=== PATIENT | male | born 1975 | race Two or more races ===

== ENCOUNTER → 2019-02-03 | Outpatient (REF) | payer OTHER | LOC: M SFHCPLAZ 11:40 | PROVIDERS: ATTEND Physician Assistant Medical | DX: Z53.9 Procedure and treatment not carried out, unspecified reason (principal); R03.0 Elevated blood-pressure reading, without diagnosis of hypertension; E66.9 Obesity, unspecified; Z13.220 Encounter for screening for lipoid disorders ==

== ENCOUNTER → 2019-02-24 | Outpatient (REF) | payer OTHER ==
[2019-02-24 13:03] LABS: BASO % 0.4 % (0.0-1.0); EOS # 0.1 10^3/uL (0.0-0.50); EOS % 1.6 % (0.0-3.0); HEMATOCRIT 44.3 % (42.0-52.0); LYMPH # 1.7 10^3/uL (1.5-4.5); LYMPH % 31.4 % (24.0-44.0); MEAN CORPUSCULAR HEMOGLOBIN 28.9 pg (27.0-33.0); MEAN CORPUSCULAR HGB CONC 33.9 g/dl (32.0-36.5); MEAN CORPUSCULAR VOLUME 85.4 fl (80.0-96.0); MONO # 0.5 10^3/uL (0.0-0.8); MONO % 9.4 % (0.0-5.0); NEUTROPHILS # 3.1 10^3/uL (1.8-7.7); NEUTROPHILS % 56.1 % (36.0-66.0); PLATELET COUNT, AUTOMATED 213 10^3/uL (150-450); RED BLOOD COUNT 5.19 10^6/uL (4.30-6.10); WHITE BLOOD COUNT 5.6 10^3/uL (4.0-10.0)
[2019-02-24 13:21] LABS: ALBUMIN 3.9 GM/DL (3.2-5.2); ALT/SGPT 34 U/L (12-78); BILIRUBIN,TOTAL 0.5 MG/DL (0.2-1.0); BLOOD UREA NITROGEN 16 MG/DL (7-18); CARBON DIOXIDE LEVEL 28 MEQ/L (21-32); CHLORIDE LEVEL 107 MEQ/L (98-107); CHOLESTEROL LEVEL 193 MG/DL (<200); CHOLESTEROL RISK RATIO 6.655 (<5); CREATININE FOR GFR 0.86 MG/DL (0.70-1.30); FREE T4 1.06 NG/DL (0.76-1.46); GLOMERULAR FILTRATION RATE > 60.0 (>60); GLUCOSE, FASTING 235 MG/DL (70-100); HDL CHOLESTEROL 29 MG/DL (>40); LDL CHOLESTEROL 112 MG/DL (<100); NON-HDL-C 164 MG/DL; POTASSIUM SERUM 4.2 MEQ/L (3.5-5.1); SODIUM LEVEL 139 MEQ/L (136-145); TOTAL PROTEIN 6.9 GM/DL (6.4-8.2); TRIGLYCERIDES LEVEL 259 MG/DL (<150)
[2019-02-24 17:02] LABS: HEMOGLOBIN A1c 10.6 %
== END ==
LOC: M SFHCPLAZ 08:49
PROVIDERS: ATTEND Physician Assistant Medical
DX: R03.0 Elevated blood-pressure reading, without diagnosis of hypertension (principal); E66.9 Obesity, unspecified; Z13.220 Encounter for screening for lipoid disorders

== ENCOUNTER → 2019-03-19 | Outpatient (REF) | payer OTHER ==
[2019-03-19 17:55] LABS: MAU/CREAT RATIO 702.5 MCG/MG (0.0-30.0)
[2019-03-19 18:16] LABS: HEMOGLOBIN A1c 8.9 %
== END ==
LOC: M SFHCPLAZ 14:24
PROVIDERS: ATTEND Physician Assistant Medical
DX: E11.9 Type 2 diabetes mellitus without complications (principal)

== ENCOUNTER → 2019-12-20 | Outpatient (CLI) | payer OTHER ==
[2019-12-20 13:45] LABS: BASO # 0.1 10^3/uL (0.0-0.2); BASO % 0.9 % (0.0-1.0); EOS # 0.2 10^3/uL (0.0-0.5); EOS % 2.8 % (0.0-3.0); HEMATOCRIT 43.6 % (42.0-52.0); HEMOGLOBIN 14.8 g/dl (13.5-17.5); LYMPH # 2.1 10^3/uL (1.5-5.0); LYMPH % 33.4 % (24.0-44.0); MEAN CORPUSCULAR HEMOGLOBIN 29.3 pg (27.0-33.0); MEAN CORPUSCULAR HGB CONC 33.9 g/dl (32.0-36.5); MEAN CORPUSCULAR VOLUME 86.3 fl (80.0-96.0); MONO # 0.6 10^3/uL (0.0-0.8); NEUTROPHILS # 3.3 10^3/uL (1.5-8.5); NEUTROPHILS % 52.3 % (36.0-66.0); PLATELET COUNT, AUTOMATED 223 10^3/uL (150-450); RED BLOOD COUNT 5.05 10^6/uL (4.30-6.10); WHITE BLOOD COUNT 6.3 10^3/uL (4.0-10.0)
[2019-12-20 13:51] LABS: ALBUMIN 3.8 GM/DL (3.2-5.2); ALT/SGPT 34 U/L (12-78); BILIRUBIN,TOTAL 0.5 MG/DL (0.2-1.0); BLOOD UREA NITROGEN 34 MG/DL (7-18); CALCIUM LEVEL 9.1 MG/DL (8.5-10.1); CARBON DIOXIDE LEVEL 25 MEQ/L (21-32); CHLORIDE LEVEL 112 MEQ/L (98-107); CHOLESTEROL LEVEL 113 MG/DL (<200); CHOLESTEROL RISK RATIO 3.896 (<5); CREATININE FOR GFR 0.97 MG/DL (0.70-1.30); GLOMERULAR FILTRATION RATE > 60.0 (>60); GLUCOSE, FASTING 136 MG/DL (70-100); HDL CHOLESTEROL 29 MG/DL (>40); LDL CHOLESTEROL 55 MG/DL (<100); NON-HDL-C 84 MG/DL; POTASSIUM SERUM 4.5 MEQ/L (3.5-5.1); SODIUM LEVEL 142 MEQ/L (136-145); TOTAL PROTEIN 6.7 GM/DL (6.4-8.2); TRIGLYCERIDES LEVEL 143 MG/DL (<150)
[2019-12-20 15:14] LABS: HEMOGLOBIN A1c 6.8 %
== END ==
LOC: M WUC 08:55
PROVIDERS: ATTEND Physician Assistant Medical
DX: E78.2 Mixed hyperlipidemia (principal); E11.9 Type 2 diabetes mellitus without complications; I10 Essential (primary) hypertension

== ENCOUNTER → 2020-05-12 | Outpatient (REF) | payer OTHER | LOC: M LAB 11:00 | PROVIDERS: ATTEND Urology | DX: Z30.2 Encounter for sterilization (principal) ==

== ENCOUNTER → 2020-07-26 | Outpatient (REF) | payer OTHER ==
[2020-07-26 12:55] LABS: SEMEN APPEARANCE OPAQUE (OPAQUE); SEMEN VISCOSITY LIQUID (LIQUID); SEMEN VOLUME 2.7 ml (2.0-5.0)
[2020-07-26 12:56] LABS: WBC CONCENTRATION <=1 M/ml (<=1 M/ml)
== END ==
LOC: M LAB REF 12:26
PROVIDERS: ATTEND Urology
DX: Z98.52 Vasectomy status (principal)

== ENCOUNTER → 2020-08-24 | Outpatient (REF) | payer OTHER ==
[2020-08-24 13:05] LABS: SEMEN APPEARANCE OPAQUE (OPAQUE)
[2020-08-24 13:06] LABS: SEMEN VISCOSITY LIQUID (LIQUID); SEMEN VOLUME 2.1 ml (2.0-5.0); WBC CONCENTRATION <=1 M/ml (<=1 M/ml)
== END ==
LOC: M SMT 12:29
PROVIDERS: ATTEND Urology
DX: Z98.52 Vasectomy status (principal)

== ENCOUNTER 2021-07-26 20:33 | Observation (INO) | payer OTHER ==
[~2021-07-26] VITALS: Ht 170.2 cm; Wt 93.2 kg
[2021-07-26] MEDS ORDERED: LISI-898 PO (20:52)
[2021-07-26] MEDS ORDERED: ATOR1TAB21 PO (20:52)
[2021-07-26] MEDS ORDERED: METF-839 PO (20:52)
[2021-07-26] MEDS ORDERED: NORV5TAB PO (20:52)
[2021-07-26 22:43] LABS: BASO # 0.1 10^3/uL (0.0-0.2); BASO % 0.5 % (0.0-1.0); EOS # 0.1 10^3/uL (0.0-0.5); EOS % 0.9 % (0.0-3.0); HEMATOCRIT 45.5 % (42.0-52.0); HEMOGLOBIN 15.4 g/dl (13.5-17.5); LYMPH # 1.1 10^3/uL (1.5-5.0); LYMPH % 8.7 % (24.0-44.0); MEAN CORPUSCULAR HEMOGLOBIN 28.3 pg (27.0-33.0); MEAN CORPUSCULAR HGB CONC 33.8 g/dl (32.0-36.5); MEAN CORPUSCULAR VOLUME 83.5 fl (80.0-96.0); MONO # 0.8 10^3/uL (0.0-0.8); NEUTROPHILS # 10.5 10^3/uL (1.5-8.5); NEUTROPHILS % 82.3 % (36.0-66.0); PLATELET COUNT, AUTOMATED 228 10^3/uL (150-450); RED BLOOD COUNT 5.45 10^6/uL (4.30-6.10); WHITE BLOOD COUNT 12.8 10^3/uL (4.0-10.0)
[2021-07-26 23:18] LABS: ALBUMIN 3.9 GM/DL (3.2-5.2); ALT/SGPT 33 U/L (12-78); BILIRUBIN,DIRECT < 0.1 MG/DL (0.0-0.2); BILIRUBIN,TOTAL 0.5 MG/DL (0.2-1.0); BLOOD UREA NITROGEN 42 MG/DL (7-18); CALCIUM LEVEL 9.3 MG/DL (8.5-10.1); CARBON DIOXIDE LEVEL 26 MEQ/L (21-32); CHLORIDE LEVEL 104 MEQ/L (98-107); CREATININE FOR GFR 2.14 MG/DL (0.70-1.30); GLOMERULAR FILTRATION RATE 35.8 (>60); GLUCOSE, FASTING 178 MG/DL (70-100); LIPASE 529 U/L (73-393); POTASSIUM SERUM 4.2 MEQ/L (3.5-5.1); SODIUM LEVEL 138 MEQ/L (136-145); TOTAL PROTEIN 7.5 GM/DL (6.4-8.2)
[2021-07-27] VITALS (9 sets, daily range): BP systolic 92–206; BP diastolic 60–135
[2021-07-27] MEDS ORDERED: NS 1,000 ML IV ONE (00:10)
[2021-07-27] MEDS ORDERED: MORPHINE 4 MG/ML 1ML VIAL/SYRINGE (J2270) IV ONE (00:40)
[2021-07-27 01:47] LABS: RSV AMPLIFICATION NEGATIVE (NEGATIVE)
--- NOTE | 2021-07-27 02:04 | REPVR ---
PROCEDURE INFORMATION: Exam: CT Abdomen And Pelvis Without Contrast Exam date and time: 07/27/2021 12:14 AM Age: 46 years old Clinical indication: Abdominal pain; Flank; Left; Additional info: Llq pain TECHNIQUE: Imaging protocol: Computed tomography of the abdomen and pelvis without contrast. Radiation optimization: All CT scans at this facility use at least one of these dose optimization techniques: automated exposure control; mA and/or kV adjustment per patient size (includes targeted exams where dose is matched to clinical indication); or iterative reconstruction. COMPARISON: No relevant prior studies available. FINDINGS: Mediastinal space: Small hiatal hernia with gastroesophageal junction thickening. Liver: Normal. No mass. Gallbladder and bile ducts: Normal. No calcified stones. No ductal dilation. Pancreas: Normal. No ductal dilation. Spleen: Normal. No splenomegaly. Adrenal glands: Normal. No mass. Kidneys and ureters: Left ureteral pelvic obstructing 12 mm calculus. Moderate left renal hydronephrosis with renal swelling and perinephric stranding. Additional small nonobstructing left inferior renal pole calculi. Stomach and bowel: Unremarkable. No obstruction. No mucosal thickening. Appendix: No evidence of appendicitis. Intraperitoneal space: Unremarkable. No free air. No significant fluid collection. Vasculature: Unremarkable. No abdominal aortic aneurysm. Lymph nodes: Unremarkable. No enlarged lymph nodes. Urinary bladder: Unremarkable as visualized. Reproductive: Unremarkable as visualized. Bones/joints: Moderate lumbar spondylosis. Small to moderate disc bulge and protrusions. Soft tissues: Unremarkable. IMPRESSION: 1. Small hiatal hernia with gastroesophageal junction thickening. 2. Left ureteral pelvic obstructing 12 mm calculus. Moderate left renal hydronephrosis with renal swelling and perinephric stranding. Electronically signed by: Alvin Samuel On 07/27/2021 02:04:14 AM
[2021-07-27] MEDS ORDERED: NS 1,000 ML IV SCH (02:45)
[2021-07-27] MEDS ORDERED: GLUCOSE 4GM CHEW TABLET PO PRN ×2 (02:45→19:15)
[2021-07-27] MEDS ORDERED: MORPHINE 2 MG/ML 1ML VIAL (J2270) IV PRN (02:45)
[2021-07-27] MEDS ORDERED: GLUCAGON INJ 1MG VIAL SC PRN ×2 (02:45→19:15)
[2021-07-27] MEDS ORDERED: DEXTROSE 50% 50 ML SYRINGE IV PRN ×2 (02:45→19:15)
[2021-07-27] MEDS ORDERED: ONDANSETRON 4MG/2ML VIAL IV PRN ×2 (02:50→16:30)
[2021-07-27] MEDS: HumaLOG INSULIN (NovoLOG) PER UNIT SC SCH ×5 (03:20→20:41)
[2021-07-27] MEDS ORDERED: NS 500 ML IV ONE (03:30)
[2021-07-27] MEDS ORDERED: HOME MED LIST COMPLETE! XX SCH (03:45)
[2021-07-27] MEDS ORDERED: METF-838 PO (03:45)
[2021-07-27] MEDS ORDERED: MULTCHW12 PO (03:45)
[2021-07-27] MEDS ORDERED: AMLO1TAB24 PO (03:45)
[2021-07-27] MEDS ORDERED: LISI10TA22 PO (03:45)
[2021-07-27] MEDS ORDERED: ATOR1TAB21 PO (03:45)
[2021-07-27] MEDS ORDERED: IBUP-1730 PO (03:45)
--- NOTE | 2021-07-27 03:47 | HPEPDOC ---
General Date of Admission 07/27/21 Date of Service: Jul 27, 2021 Chief Complaint Abd Pain. 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 Patient reports that he is also had associated nausea vomiting episode due to the pain. Patient reports the lower left abdomen radiating to left flank cramping type pain moderate this AM. Patient reports it was relieved somewhat with Advil but felt he should come into the ER. Patient underwent CT abdomen pelvis that showed + small hiatal hernia and Left ureteral pelvic obstructing 12 mm calculus. Moderate left renal hydronephrosis with renal swelling and perinephric stranding. Dr. Bain with urology was consulted in ED who recommended admission for IV fluid and pain control with plan for OR in a.m. Home Medications Scheduled Amlodipine Besylate (Amlodipine Besylate) 5 Mg Tablet, 5 MG PO BID Atorvastatin Calcium (Atorvastatin Calcium) 20 Mg Tablet, 20 MG PO QHS, (Reported) Folic Acid/Multivit-Min/Lutein (Multi-Vitamin Gummies) 1 Each Tab.chew, 2 CHW PO DAILY, (Reported) Metformin HCl (Metformin HCl ER) 500 Mg Tab.er.24h, 500 MG PO QHS, (Reported) Metoprolol Tartrate (Metoprolol Tartrate) 25 Mg Tablet, 50 MG PO BID Allergies Coded Allergies: Penicillins (Verified Allergy, Intermediate, hives, 07/26/21) Past Medical History Medical History Hypertension, hyperlipidemia, diabetes, obesity Surgical History Vasectomy Family History Significant Family History: Diabetes Mother and fatherdiabetes Social History * Smoker: Denies Alcohol: rarely Drugs: denies Recent Travel/Sick Contacts: Denies: Recent travel, Recent sick contacts Psychosocial History: No pertinent psych hx A-FIB/CHADSVASC A-FIB History Current/History of A-Fib/PAF?: No Current PO Anticoag Therapy: No Review of Systems Constitutional: Denies: Chills, Fever, Night Sweats Eyes: Denies: Pain, Vision change ENT: Denies: Head Aches, Ear Pain, Dysphagia Skin: Denies: Rash, Lesions, Breakdown Pulmonary: Denies: Dyspnea, Cough Cardiovascular: Denies: Chest Pain, Palpitations, Orthopnea, Paroxysmal Noc. Dyspnea, Lt Headedness Gastrointestinal: Reports: Nausea, Vomiting, Abdominal Pain (Left-sided); Denies: Diarrhea Genitourinary: Reports: Hematuria; Denies: Dysuria, Frequency, Incontinence, Retention Hematologic: Denies: Bruising, Bleeding Excessively Musculoskeletal: Denies: Neck Pain, Back Pain, Joint Pain, Muscle Pain, Spasms Neurological: Denies: Weakness, Numbness, Change in speech, Confusion Psych: Reports: Mood Normal; Denies: Depression, Memory Issues Physical Examination General Exam: Positive: Alert, Cooperative, No Acute Distress Eye Exam: Positive: PERRLA, Conjunctiva & lids normal, EOMI; Negative: Sclera icteric ENT Exam: Positive: Atraumatic, Mucous membr. moist/pink, Pharynx Normal Neck Exam: Positive: Supple; Negative: JVD, thyromegaly Chest Exam: Positive: Clear to auscultation, Normal air movement Heart Exam: Positive: Rate Normal, Regular Rhythm, Normal S1, Normal S2; Negative: Murmurs, Rubs Telemetry: Positive: No significant arrhythmia Abdomen Exam: Positive: Normal bowel sounds, Soft; Negative: Tenderness, Hepatospenomegaly Extremity Exam: Positive: Normal pulses; Negative: Clubbing, Cyanosis, Edema Skin Exam: Positive: Nl turgor and temperature; Negative: Breakdown, Lesion Neuro Exam: Positive: Normal Gait, Normal Speech, Cranial Nerves 3-12 NL, Reflexes 2+ Psych Exam: Positive: Mental status NL, Mood NL, Oriented x 3 Other physical findings + Left flank tenderness Vital Signs Vital Signs Date Time Temp Pulse Resp B/P (MAP) Pulse Ox O2 Delivery O2 Flow Rate FiO2 07/27/21 02:12 07/27/21 02:11 98.4 76 16 96 07/26/21 20:35 Room Air Laboratory Data Labs 24H Laboratory Tests 2 07/26/21 22:21: Immature Granulocyte % (Auto) 1.6, Neutrophils (%) (Auto) 82.3H, Lymphocytes (%) (Auto) 8.7L, Monocytes (%) (Auto) 6.0, Eosinophils (%) (Auto) 0.9, Basophils (%) (Auto) 0.5, Neutrophils # (Auto) 10.5H, Lymphocytes # (Auto) 1.1L, Monocytes # (Auto) 0.8, Eosinophils # (Auto) 0.1, Basophils # (Auto) 0.1, Nucleated Red Blood Cells % (auto) 0.0, Anion Gap 8, Glomerular Filtration Rate 35.8L, Lactic Acid Level 0.8, Calcium Level 9.3, Total Bilirubin 0.5, Direct Bilirubin < 0.1, Aspartate Amino Transf (AST/SGOT) 22, Alanine Aminotransferase (ALT/SGPT) 33, Alkaline Phosphatase 66, Total Protein 7.5, Albumin 3.9, Albumin/Globulin Ratio 1.1, Lipase 529H 07/27/21 00:56: Coronavirus (COVID-19)(PCR) NEGATIVE, Influenza Type A (RT-PCR) NEGATIVE, Influenza Type B (RT-PCR) NEGATIVE, Respiratory Syncytial Virus (PCR) NEGATIVE 07/27/21 01:38: Urine Color YELLOW, Urine Appearance CLEAR, Urine pH 5.0, Urine Specific [place] 1.015, Urine Protein 3+H, Urine Glucose (UA) 2+H, Urine Ketones TRACEH, Urine Blood 3+H, Urine Nitrite NEGATIVE, Urine Bilirubin NEGATIVE, Urine Urobilinogen 0.2, Urine Leukocyte Esterase NEGATIVE, Urine WBC (Auto) 1, Urine RBC (Auto) 47H, Urine Hyaline Casts (Auto) 1, Urine Bacteria (Auto) NEGATIVE, Urine Squamous Epithelial Cells 0, Urine Sperm (Auto) CBC/BMP Laboratory Tests 07/26/21 22:21 RAD Interpretation STUDY: ct a/p Rad Actions: Report Reviewed RAD Interpretation: Other Result Comments: Assessment/Plan 1. Left hydronephrosis secondary to renal calculus: -Monitor patient urine output -symptom management/supportive care: K pad, Toradol, morphine -IV fluid hydration -A.m. lab -N.p.o. for intervention in a.m. -Preop empiric coverage -Appreciate urology consult for further intervention/recommendation 2. SERENA: In setting of above. Creatinine 2.14 BUN 42-Monitor fluid balance, I's and O's, urinary output -Hydrate with consideration -Avoid nephrotoxins as able -A.m. labs -Consider nephrology consult pending patient response 3. Elevated lipase: 529. Denies history of pancreatitis. Denies EtOH. -Anticipate with hydration and treatment above will trend down. A.m. lab check. 4. HTN: Monitor BP in setting of above. Continue home medications once reconciled. 5. Diabetes: -Check A1c. -Monitor patient blood glucose every 6 hours. -Sliding scale insulin. -Hypoglycemia protocol. -Place patient on D5 normal saline at 60 since NPO. -A.m. labs. 6. Hyperlipidemia: Continue home medicine 7. Obesity: Complicates care DVT prophylaxis: SCDs CODE STATUS: Full Disposition planning: Home once creatinine normalizes and pending urological recommendations; anticipate less than 2 midnight stay Plan / VTE VTE Prophylaxis Ordered?: Yes WANDER PERALES NP Jul 27, 2021 02:44 MELISSA BURR MD Jul 29, 2021 20:06
[2021-07-27] MEDS: ATORVASTATIN 20 MG TAB PO SCH ×2 (04:29→20:41)
[2021-07-27] MEDS: amLODIPine 5 MG TAB PO SCH ×2 (04:29→20:41)
[2021-07-27] MEDS ORDERED: D5W/0.9% SODIUM CHLORIDE 1,000 ML IV SCH (04:30)
[2021-07-27] MEDS: KETOROLAC 30 MG/ML 1ML VIAL IV PRN ×2 (04:30→11:25)
[2021-07-27] MEDS ORDERED: METOPROLOL TART 12.5 MG PER 1/2 TAB PO PRN (05:35)
[2021-07-27 07:13] LABS: BASO % 0.3 % (0.0-1.0); EOS # 0.1 10^3/uL (0.0-0.5); EOS % 0.7 % (0.0-3.0); HEMATOCRIT 40.9 % (42.0-52.0); HEMOGLOBIN 14.1 g/dl (13.5-17.5); LYMPH % 9.8 % (24.0-44.0); MEAN CORPUSCULAR HEMOGLOBIN 28.5 pg (27.0-33.0); MEAN CORPUSCULAR HGB CONC 34.5 g/dl (32.0-36.5); MEAN CORPUSCULAR VOLUME 82.6 fl (80.0-96.0); MONO # 0.8 10^3/uL (0.0-0.8); MONO % 7.8 % (2.0-8.0); NEUTROPHILS # 7.7 10^3/uL (1.5-8.5); PLATELET COUNT, AUTOMATED 185 10^3/uL (150-450); RED BLOOD COUNT 4.95 10^6/uL (4.30-6.10); WHITE BLOOD COUNT 9.7 10^3/uL (4.0-10.0)
[2021-07-27 07:43] LABS: CALCIUM LEVEL 8.6 MG/DL (8.5-10.1); CREATININE FOR GFR 2.16 MG/DL (0.70-1.30); GLOMERULAR FILTRATION RATE 35.4 (>60); POTASSIUM SERUM 4.2 MEQ/L (3.5-5.1)
[2021-07-27] MEDS ORDERED: cefTRIAXone SOD 1 GM in D5W MINI-BAG PLUS 50 ML IV SCH (08:00)
--- NOTE | 2021-07-27 08:55 | SMCUROLCON ---
Urology Consultation General Date of Consultation 07/27/21 Reason For Consultation This patient is seen for Pravin, Renal Calcusl Left. History of Present Illness This is a 46 y/o M w/ a PMH significant for HL, HTN, and DM2, admitted for PRAVIN and abdominal pain secondary to a 1.2cm obstructing left kidney stone. He notes that the pain started yesterday and gradually got worse. He had one episode of emesis yesterday evening. CT A/P done in the ER was notable for a 1.2cm stone at the left UPJ causing moderate hydronephrosis. He denies dysuria or hematuria. He denies fevers or chills. He has never had kidney stones previously. Past Medical History Medical History see HPI Surgical Hstory Vasectomy Medications Current Medications Current Medications Medications (Trade) Dose Ordered Sig/Chanel Route PRN Reason Start Time Stop Time Status Last Admin Dose Admin Acetaminophen (Tylenol Tab) 650 mg Q4H PRN PO MILD PAIN or TEMP > 101 07/27/21 02:45 Amlodipine Besylate (Norvasc) 5 mg QHS PO 07/26/21 21:00 07/27/21 04:29 Atorvastatin Calcium (Lipitor) 20 mg QHS PO 07/26/21 21:00 07/27/21 04:29 Ceftriaxone Sodium 1 gm/ Dextrose 50 ml @ 100 mls/hr ASDIRECTED IV 07/27/21 08:00 Dextrose (Dextrose 50%) 25 ml ASDIRECTED PRN IV SEE LABEL COMMENTS 07/27/21 02:45 Dextrose/Sodium Chloride 1,000 ml @ 60 mls/hr [id number] IV 07/27/21 04:30 07/27/21 04:30 Glucagon (Glucagon) 1 mg ASDIRECTED PRN SC SEE LABEL COMMENTS 07/27/21 02:45 Glucose (Glucose) 16 GM ASDIRECTED PRN PO SEE LABEL COMMENTS 07/27/21 02:45 Home Med (Home Med List Complete!) ASDIRECTED XX 07/27/21 03:45 07/27/21 03:47 DC Insulin Human Lispro (HumaLOG INSULIN) See Protocol Table Q6H SC 07/27/21 00:00 07/27/21 06:25 Ketorolac Tromethamine (ToRADol) 15 mg Q6H PRN IV MODERATE PAIN 07/27/21 02:45 07/27/21 04:30 Metoprolol Tartrate (Lopressor) 12.5 mg Q8HP PRN PO sbp>170 or DBP>100 07/27/21 05:35 Morphine Sulfate (Morphine Sulfate Inj) 2 mg Q4HP PRN IV SEVERE PAIN 07/27/21 02:45 Multivitamins (Theragram-M) 1 tab DAILY PO 07/27/21 09:00 Ondansetron HCl (ZOFRAN INJection) 4 mg Q6HP PRN IV NAUSEA OR VOMITING 07/27/21 02:50 Sodium Chloride 1,000 ml @ 125 mls/hr Q8H IV 07/27/21 02:45 07/27/21 03:32 DC 07/27/21 03:20 Allergies Allergies: Coded Allergies: Penicillins (Verified Allergy, Intermediate, hives, 07/26/21) Review of Systems Constitutional: Denies: Fever, Chills, Sweats, Weakness, Malaise Skin: Denies: Rash, Lesions, Breakdown, Nail Changes Pulmonary: Denies: Dyspnea, Cough Cardiovascular: Denies Chest Pain, Denies Palpitations Gastrointestinal: Reports: Nausea, Vomiting, Abdominal Pain (LLQ) Genitourinary: Denies: Dysuria, Frequency, Incontinence, Hematuria Musculoskeletal: Denies: Neck Pain, Back Pain Neurological: Denies: Weakness, Numbness, Incoordination, Change in Speech Psych: Reports: Mood Normal Physical Examination General Exam: Alert, Cooperative, No Acute Distress Chest Exam: Normal air movement Heart Exam: Rate Normal Abdomen Exam: Soft, Tenderness (mild LLQ) Skin Exam: Nl turgor and temperature Neuro Exam: Normal Speech Psych Exam: Mental status NL, Mood NL Vital Signs/I&O Vital Signs Date Time Temp Pulse Resp B/P (MAP) Pulse Ox O2 Delivery O2 Flow Rate FiO2 07/27/21 06:00 98.4 107 20 174/110 (131) 91 Room Air I&O- Last 24 Hours up to 6 AM 07/27/21 06:00 Intake Total 1000 ml Balance 1000 ml Laboratory Data 24H Labs Laboratory Tests 2 07/26/21 22:21: Immature Granulocyte % (Auto) 1.6, Neutrophils (%) (Auto) 82.3H, Lymphocytes (%) (Auto) 8.7L, Monocytes (%) (Auto) 6.0, Eosinophils (%) (Auto) 0.9, Basophils (%) (Auto) 0.5, Neutrophils # (Auto) 10.5H, Lymphocytes # (Auto) 1.1L, Monocytes # (Auto) 0.8, Eosinophils # (Auto) 0.1, Basophils # (Auto) 0.1, Nucleated Red Blood Cells % (auto) 0.0, Anion Gap 8, Glomerular Filtration Rate 35.8L, Lactic Acid Level 0.8, Calcium Level 9.3, Total Bilirubin 0.5, Direct Bilirubin < 0.1, Aspartate Amino Transf (AST/SGOT) 22, Alanine Aminotransferase (ALT/SGPT) 33, Alkaline Phosphatase 66, Total Protein 7.5, Albumin 3.9, Albumin/Globulin Ratio 1.1, Lipase 529H 07/27/21 00:56: Coronavirus (COVID-19)(PCR) NEGATIVE, Influenza Type A (RT-PCR) NEGATIVE, Influenza Type B (RT-PCR) NEGATIVE, Respiratory Syncytial Virus (PCR) NEGATIVE 07/27/21 01:38: Urine Color YELLOW, Urine Appearance CLEAR, Urine pH 5.0, Urine Specific [place] 1.015, Urine Protein 3+H, Urine Glucose (UA) 2+H, Urine Ketones TRACEH, Urine Blood 3+H, Urine Nitrite NEGATIVE, Urine Bilirubin NEGATIVE, Urine Urobilinogen 0.2, Urine Leukocyte Esterase NEGATIVE, Urine WBC (Auto) 1, Urine RBC (Auto) 47H, Urine Hyaline Casts (Auto) 1, Urine Bacteria (Auto) NEGATIVE, Urine Squamous Epithelial Cells 0, Urine Sperm (Auto) 07/27/21 03:25: Bedside Glucose (Misc Panel) 199H 07/27/21 06:06: Bedside Glucose (Misc Panel) 196H 07/27/21 07:01: Immature Granulocyte % (Auto) 1.4, Neutrophils (%) (Auto) 80.0H, Lymphocytes (%) (Auto) 9.8L, Monocytes (%) (Auto) 7.8, Eosinophils (%) (Auto) 0.7, Basophils (%) (Auto) 0.3, Neutrophils # (Auto) 7.7, Lymphocytes # (Auto) 1.0L, Monocytes # (Auto) 0.8, Eosinophils # (Auto) 0.1, Basophils # (Auto) 0.0, Nucleated Red Blood Cells % (auto) 0.0, Anion Gap 9, Glomerular Filtration Rate 35.4L, Calcium Level 8.6, Lipase 204 CBC/BMP Laboratory Tests 07/26/21 22:21 07/27/21 07:01 Assessment This is a 46 y/o M admitted for PRAVIN and LLQ abdominal pain 2/2 a 1.2cm obstructing left UPJ stone. I recommended that we take him to the OR today for cystoscopy, left ureteroscopy w/ laser lithotripsy, and left ureteral stent placement for treatment. After a discussion of the risks and benefits of surgery, informed consent was signed. Plan - consent signed for surgery - rocephin ordered - pain management - NPO until surgery - resume regular diet postop - should be ok for discharge tomorrow assuming his Cr improves after surgery TIFFANY ACHARYA MD Jul 27, 2021 08:55
[2021-07-27] MEDS: MULTIVITAMINS/MINERALS THERAP 1 TAB PO SCH (09:00)
[2021-07-27] MEDS ORDERED: fentaNYL 100 MCG/2 ML INJECTION (J3010) As Ordered ONE ×2 (13:28→15:23)
[2021-07-27] MEDS ORDERED: MIDAZOLAM INJ 2MG/2ML VIAL (J2250 PER 1MG) As Ordered ONE (13:28)
[2021-07-27] MEDS ORDERED: dexameTHASONE 4 MG/ML 1ML VIAL (J1100 PER 1MG) As Ordered ONE (13:29)
[2021-07-27] MEDS ORDERED: LIDOCAINE 2% 100MG/5ML SDV (FOR ANES.) As Ordered ONE (13:29)
[2021-07-27] MEDS ORDERED: propofoL 200 MG/20 ML VIAL As Ordered ONE (13:29)
[2021-07-27] MEDS ORDERED: CONRAY-60 60% 50ML VIAL (Q9961) As Ordered ONE (14:15)
[2021-07-27] MEDS ORDERED: cefTRIAXone SOD 1GM VIAL (J0696 PER 250MG) As Ordered ONE (14:40)
[2021-07-27] MEDS ORDERED: LevoFLOXacin 500MG/100ML IV BAG (J1956 PER 250MG) As Ordered ONE (14:44)
[2021-07-27] MEDS ORDERED: ACETAMINOPHEN 1000MG 100ML IV BTL (OFIRMEV) (J0131 PER 10MG) As Ordered ONE (14:54)
[2021-07-27] MEDS ORDERED: ONDANSETRON 4MG/2ML VIAL As Ordered ONE (14:58)
[2021-07-27] MEDS ORDERED: fentaNYL 100 MCG/2 ML INJECTION (J3010) IV PRN (16:30)
[2021-07-27] MEDS ORDERED: LR 1,000 ML IV SCH (16:30)
[2021-07-27] MEDS ORDERED: PERCOCET 5MG/325MG TAB PO PRN (16:30)
--- NOTE | 2021-07-27 18:49 | RO ---
OPERATIVE NOTE DATE OF OPERATION: 07/26/2021 PREOPERATIVE DIAGNOSIS: Left kidney stone. POSTOPERATIVE DIAGNOSIS: Left kidney stones. PROCEDURE: Cystoscopy, left ureteroscopy with laser lithotripsy and basket extraction of stones, left retrograde pyelogram with intraoperative interpretation of images, left ureteral stent placement. SURGEON: Dr. Yeyo Bain SPORTS PHOTOGRAPHER: None. ANESTHESIA: General. OPERATIVE INDICATIONS: This is a 46-year-old male who was found to have what appeared to be an approximately 1.3 cm obstructing left ureteropelvic junction stone. He was brought to the operating room today for treatment. DESCRIPTION OF PROCEDURE: The patient was brought to the operating room and general anesthesia induced. Prophylactic antibiotics were infused. He was placed in dorsal lithotomy position and prepped and draped in the usual sterile fashion. The cystoscope was inserted into the urethral meatus and advanced into the bladder. A guidewire was then advanced up the left collecting system. I then advanced a ureteral access sheath up the left collecting system. I went through the access sheath with a flexible ureteroscope, and at the level of the proximal ureter there were two kidney stones seen. Each were approximately 4-5 mm in size. These stones were fragmented into smaller pieces using a 272 micron laser fiber, and then the fragments were removed using a basket. Just proximal to this was a larger, approximately 1 cm size, stone. There was some narrowing in the proximal right ureter. Therefore, the decision was made not to try to fragment the stone into larger pieces, as it would have been difficult to keep going back and forth with the scope to basket all the fragments. I therefore dusted the stone into the very tiny stone fragments. All the fragments were dusted with the laser small enough to where they should be able to pass. Once done, I examined the right kidney thoroughly and no additional large stone fragments were seen. A retrograde pyelogram was performed and was notable for some mild right hydronephrosis. No extravasation. I then withdrew the ureteroscope as well as the access sheath, and no additional stones were seen inside the ureter. I then utilized the guidewire to advance a 6-Iranian x 22-32 cm JJ ureteral stent up the left collecting system. The wire was removed, and there were adequate coils of the stent in the left renal pelvis and in the bladder. The bladder was emptied of all fluid, and this marked the conclusion of the procedure. The patient was taken out of the dorsal lithotomy position, awakened from anesthesia, and transported to the recovery room in stable condition. ESTIMATED BLOOD LOSS: 5 mL. COMPLICATIONS: None. SPECIMENS: Kidney stone fragments. PLAN: The patient will keep his stent in for approximately 3-4 weeks. We will have him followup in urology clinic for stent removal at that time. NAEEM
--- NOTE | 2021-07-27 19:07 | REP ---
INDICATION: LEFT STENT PLACEMENT. COMPARISON: None. TECHNIQUE: Intraoperative fluoroscopic imaging using last image hold. FINDINGS: Multiple images demonstrate satisfactory left ureteral stent placement. IMPRESSION: Satisfactory left ureteral stent placement. <Electronically signed by Herman Rangel > 07/27/21 [id number]
[2021-07-28 02:00] VITALS: BP 160/96
[2021-07-28] MEDS: ACETAMINOPHEN TAB 650MG DOSE (2X325MG) PO PRN ×3 (02:33→22:03)
[2021-07-28 06:18] VITALS: BP 160/95
[2021-07-28] MEDS: **hydrALAZINE** 10 MG TAB PO SCH ×2 (08:45→15:22)
[2021-07-28] MEDS: MULTIVITAMINS/MINERALS THERAP 1 TAB PO SCH (08:46)
[2021-07-28] MEDS: amLODIPine 5 MG TAB PO SCH ×2 (08:46→21:58)
[2021-07-28] MEDS: HumaLOG INSULIN (NovoLOG) PER UNIT SC SCH ×4 (08:46→21:00)
[2021-07-28 09:14] LABS: BASO % 0.4 % (0.0-1.0); EOS # 0.1 10^3/uL (0.0-0.5); EOS % 1.1 % (0.0-3.0); HEMATOCRIT 41.4 % (42.0-52.0); HEMOGLOBIN 14.1 g/dl (13.5-17.5); LYMPH # 1.4 10^3/uL (1.5-5.0); LYMPH % 15.6 % (24.0-44.0); MEAN CORPUSCULAR HEMOGLOBIN 28.6 pg (27.0-33.0); MEAN CORPUSCULAR HGB CONC 34.1 g/dl (32.0-36.5); MONO # 0.8 10^3/uL (0.0-0.8); MONO % 8.5 % (2.0-8.0); NEUTROPHILS # 6.6 10^3/uL (1.5-8.5); NEUTROPHILS % 73.3 % (36.0-66.0); PLATELET COUNT, AUTOMATED 204 10^3/uL (150-450); RED BLOOD COUNT 4.93 10^6/uL (4.30-6.10)
[2021-07-28 09:38] LABS: CALCIUM LEVEL 8.3 MG/DL (8.5-10.1); GLOMERULAR FILTRATION RATE 38.7 (>60)
[2021-07-28 10:00] VITALS: BP 170/98
[2021-07-28] MEDS ORDERED: NS 1,000 ML IV ONE (13:35)
[2021-07-28 14:00] VITALS: BP 168/96
--- NOTE | 2021-07-28 16:30 | IPNPDOC ---
Subjective Date Seen The patient was seen on 07/28/21. Subjective Chief Complaint/HPI Patient went to OR on 07/27/2021. Now does not complain of any abdominal pain but does feel some discomfort when he is urinating. He is having hematuria as expected. His renal functions did not improve as I had expected. We will give him some extra hydration today. Objective Physical Examination General Exam: Positive: Alert, Cooperative, No Acute Distress Eye Exam: Positive: PERRLA, Conjunctiva & lids normal, EOMI; Negative: Sclera icteric ENT Exam: Positive: Atraumatic, Mucous membr. moist/pink, Pharynx Normal Neck Exam: Positive: Supple; Negative: JVD, thyromegaly Chest Exam: Positive: Clear to auscultation, Normal air movement Heart Exam: Positive: Rate Normal, Regular Rhythm, Normal S1, Normal S2; Negative: Murmurs, Rubs Telemetry: Positive: No significant arrhythmia Abdomen Exam: Positive: Normal bowel sounds, Soft; Negative: Tenderness, Hepatospenomegaly Extremity Exam: Negative: Clubbing, Cyanosis, Edema Skin Exam: Positive: Nl turgor and temperature; Negative: Breakdown, Lesion Neuro Exam: Positive: Normal Speech, Strength at 5/5 X4 ext, Normal Tone Psych Exam: Positive: Oriented x 3 Assessment /Plan Assessment This is 46-year-old male with significant history of hypertension, hyper lipidemia, diabetes and obesity presented to the ED with complaints of left- sided lower abdominal pain for 1 day associated with nausea and vomiting 1 episode patient reports that he is also had associated nausea vomiting episode due to the pain. CT abdomen pelvis that showed + small hiatal hernia and Left ureteropelvic junction obstructing 12 mm calculus. Moderate left renal hydronephrosis with renal swelling and perinephric stranding. He was also noted to have SERENA. Patient was admitted for left ureteric stone with obstructive uropathy and SERENA. Left kidney stones and left ureteric stone with left hydronephrosis Status post cystoscopy, left ureteroscopy with laser lithotripsy and basket extraction of stones, left retrograde pyelogram, left ureteral stent placement. SERENA Due to obstructive Lisinopril* Hypertension Amlodipine dose increased, started on hydralazine and metoprolol Lisinopril stopped due to SERENA Diabetes Lispro as per sliding scale Hyperlipidemia Continue statin Plan/VTE VTE Prophylaxis Ordered?: Yes VS, I&O, 24H, Brian Vital Signs/I&O Vital Signs Date Time Temp Pulse Resp B/P (MAP) Pulse Ox O2 Delivery O2 Flow Rate FiO2 07/28/21 15:22 172/104 07/28/21 14:00 98.4 96 20 94 Room Air 07/27/21 18:05 2.0 I&O- Last 24 Hours up to 6 AM 07/28/21 06:00 Intake Total 1500 ml Balance 1500 ml Laboratory Data 24H LABS Laboratory Tests 2 07/27/21 18:42: Bedside Glucose (Misc Panel) 197H 07/27/21 20:38: Bedside Glucose (Misc Panel) 309H 07/28/21 08:06: Bedside Glucose (Misc Panel) 139H 07/28/21 08:58: Anion Gap 6L, Glomerular Filtration Rate 38.7L, Calcium Level 8.3L 07/28/21 08:59: Immature Granulocyte % (Auto) 1.1, Neutrophils (%) (Auto) 73.3H, Lymphocytes (%) (Auto) 15.6L, Monocytes (%) (Auto) 8.5H, Eosinophils (%) (Auto) 1.1, Basophils (%) (Auto) 0.4, Neutrophils # (Auto) 6.6, Lymphocytes # (Auto) 1.4L, Monocytes # (Auto) 0.8, Eosinophils # (Auto) 0.1, Basophils # (Auto) 0.0, Nucleated Red Blood Cells % (auto) 0.0 07/28/21 11:33: Bedside Glucose (Misc Panel) 178H CBC/BMP Laboratory Tests 07/28/21 08:58 07/28/21 08:59 Amalia Reese MD Jul 28, 2021 16:30
[2021-07-28 18:00] VITALS: BP 160/90
[2021-07-28] MEDS: METOPROLOL TART 25 MG TABLET PO SCH (18:02)
[2021-07-28 21:28] VITALS: BP 163/82
[2021-07-28] MEDS: ATORVASTATIN 20 MG TAB PO SCH (21:58)
[2021-07-29 00:37] VITALS: BP 166/102
[2021-07-29] MEDS: METOPROLOL TART 25 MG TABLET PO SCH ×2 (00:39→05:53)
[2021-07-29] MEDS: **hydrALAZINE HCL** 25 MG TAB PO SCH ×3 (00:40→12:00)
[2021-07-29 06:00] VITALS: BP 164/83
[2021-07-29] MEDS: HumaLOG INSULIN (NovoLOG) PER UNIT SC SCH ×2 (08:48→12:15)
[2021-07-29] MEDS: MULTIVITAMINS/MINERALS THERAP 1 TAB PO SCH (08:48)
[2021-07-29] MEDS: amLODIPine 5 MG TAB PO SCH (08:49)
[2021-07-29 09:08] LABS: BASO # 0.1 10^3/uL (0.0-0.2); BASO % 0.6 % (0.0-1.0); EOS # 0.2 10^3/uL (0.0-0.5); HEMATOCRIT 40.8 % (42.0-52.0); HEMOGLOBIN 13.7 g/dl (13.5-17.5); LYMPH % 25.1 % (24.0-44.0); MEAN CORPUSCULAR HEMOGLOBIN 28.4 pg (27.0-33.0); MEAN CORPUSCULAR HGB CONC 33.6 g/dl (32.0-36.5); MEAN CORPUSCULAR VOLUME 84.6 fl (80.0-96.0); MONO # 0.8 10^3/uL (0.0-0.8); MONO % 9.7 % (2.0-8.0); NEUTROPHILS # 4.7 10^3/uL (1.5-8.5); NEUTROPHILS % 59.8 % (36.0-66.0); PLATELET COUNT, AUTOMATED 214 10^3/uL (150-450); RED BLOOD COUNT 4.82 10^6/uL (4.30-6.10); WHITE BLOOD COUNT 7.9 10^3/uL (4.0-10.0)
[2021-07-29 09:24] LABS: CALCIUM LEVEL 8.4 MG/DL (8.5-10.1); CREATININE FOR GFR 1.57 MG/DL (0.70-1.30); GLOMERULAR FILTRATION RATE 51.1 (>60); POTASSIUM SERUM 3.9 MEQ/L (3.5-5.1)
[2021-07-29] MEDS ORDERED: amLODIPine 5 MG TAB PO ONE (09:45)
[2021-07-29] MEDS ORDERED: METO1TAB87 PO (11:51)
[2021-07-29] MEDS ORDERED: AMLO1TAB24 PO (11:51)
[2021-07-29 12:15] VITALS: BP 156/99
[2021-07-29] MEDS ORDERED: METOPROLOL TART 25 MG TABLET PO SCH (21:00)
--- NOTE | 2021-07-29 21:26 | DS.PDOC ---
Discharge Summary General Date of Admission Jul 27, 2021 at 03:21 Date of Discharge 07/29/21 Discharge Summary PROCEDURES PERFORMED DURING STAY: Status post cystoscopy, left ureteroscopy with laser lithotripsy and basket extraction of stones, left retrograde pyelogram, left ureteral stent placement. DISCHARGE DIAGNOSES: Left ureteropelvic junction stone with left hydronephrosis PRAVIN SECONDARY DIAGNOSIS: DM, HTn, hyperlipidemia, obesity COMPLICATIONS/CHIEF COMPLAINT: Pravin, Renal Calculus Left. HOSPITAL COURSE: This is 46-year-old male with significant history of hypertension, hyperlipidemia, diabetes and obesity presented to the ED with complaints of left-sided lower abdominal pain for 1 day associated with nausea and vomiting 1 episode patient reports that he is also had associated nausea vomiting episode due to the pain. CT abdomen pelvis that showed + small hiatal hernia with thickening of gastroesophageal junction left renal stones and Left ureteropelvic junction obstructing 12 mm calculus. Moderate left renal hydronephrosis with renal swelling and perinephric stranding. He was also noted to have PRAVIN. Patient was admitted for left ureteric stone with obstructive uropathy and PRAVIN. Left kidney stone and left ureteric stone with left hydronephrosis UA clean , no elevation of WBC, no fever no signs of infections. Status post cystoscopy, left ureteroscopy with laser lithotripsy and basket extraction of stones, left retrograde pyelogram, left ureteral stent placement. Follow up with Dr bain in 2 to 3 weeks for removal of the stent. Pain control with tylenol. PRAVIN Due to obstructive uropathy Lisinopril stopped Hypertension Amlodipine dose increased, started on metoprolol Lisinopril stopped due to PRAVIN Diabetes restart metformin Hyperlipidemia Continue statin Small hiatal hernia with mild thickening of gastroesophageal junction no symptoms of reflux. Follow up with PMD. May need an EGD if develops alarming symptoms. DISCHARGE MEDICATIONS: Please see below. ALLERGIES: Please see below. PHYSICAL EXAMINATION ON DISCHARGE: VITAL SIGNS: Please see below. General Exam: Positive: Alert, Cooperative, No Acute Distress Eye Exam: Positive: PERRLA, Conjunctiva & lids normal, EOMI; Negative: Sclera icteric ENT Exam: Positive: Atraumatic, Mucous membr. moist/pink, Pharynx Normal Neck Exam: Positive: Supple; Negative: JVD, thyromegaly Chest Exam: Positive: Clear to auscultation, Normal air movement Heart Exam: Positive: Rate Normal, Regular Rhythm, Normal S1, Normal S2; Negative: Murmurs, Rubs Telemetry: Positive: No significant arrhythmia Abdomen Exam: Positive: Normal bowel sounds, Soft; Negative: Tenderness, Hepatosplenomegaly Extremity Exam: Negative: Clubbing, Cyanosis, Edema Skin Exam: Positive: Nl turgor and temperature; Negative: Breakdown, Lesion Neuro Exam: Positive: Normal Speech, Strength at 5/5 X4 ext, Normal Tone Psych Exam: Positive: Oriented x 3 LABORATORY DATA: Please see below. ACTIVITY: [As tolerated]. DIET: carb consistent DISPOSITION: 01 Home, Self-Care. DISCHARGE INSTRUCTIONS: PMD in [address] Bain in 2 to 3 weeks DISCHARGE CONDITION: [Stable]. TIME SPENT ON DISCHARGE: 35 minutes. Vital Signs/I&Os Vital Signs Date Time Temp Pulse Resp B/P (MAP) Pulse Ox O2 Delivery O2 Flow Rate FiO2 07/29/21 12:15 77 156/99 07/29/21 06:00 98.6 18 96 Room Air 07/27/21 18:05 2.0 I&O- Last 24 Hours up to 6 AM 07/29/21 07:00 Intake Total 2800 ml Output Total 1100 ml Balance 1700 ml Laboratory Data Labs 24H Laboratory Tests 2 07/29/21 07:48: Bedside Glucose (Misc Panel) 151H 07/29/21 08:40: Immature Granulocyte % (Auto) 1.8, Neutrophils (%) (Auto) 59.8, Lymphocytes (%) (Auto) 25.1, Monocytes (%) (Auto) 9.7H, Eosinophils (%) (Auto) 3.0, Basophils (%) (Auto) 0.6, Neutrophils # (Auto) 4.7, Lymphocytes # (Auto) 2.0, Monocytes # (Auto) 0.8, Eosinophils # (Auto) 0.2, Basophils # (Auto) 0.1, Nucleated Red Blood Cells % (auto) 0.0, Anion Gap 4L, Glomerular Filtration Rate 51.1L, Calcium Level 8.4L 07/29/21 11:49: Bedside Glucose (Misc Panel) 256H CBC/BMP Laboratory Tests 07/29/21 08:40 FSBS Laboratory Tests Test 07/29/21 07:48 07/29/21 11:49 Range/Units Bedside Glucose (Misc Panel) 151 256 70-105 MG/DL Discharge Medications Scheduled Amlodipine Besylate (Amlodipine Besylate) 5 Mg Tablet, 5 MG PO BID Atorvastatin Calcium (Atorvastatin Calcium) 20 Mg Tablet, 20 MG PO QHS, (Report ed) Folic Acid/Multivit-Min/Lutein (Multi-Vitamin Gummies) 1 Each Tab.chew, 2 CHW PO DAILY, (Reported) Metformin HCl (Metformin HCl ER) 500 Mg Tab.er.24h, 500 MG PO QHS, (Reported) Metoprolol Tartrate (Metoprolol Tartrate) 25 Mg Tablet, 50 MG PO BID Allergies Coded Allergies: Penicillins (Verified Allergy, Intermediate, hives, 07/26/21) Amalia Reese MD Jul 29, 2021 21:26
== END 2021-07-29 12:25 | disposition home or self-care (01) ==
LOC: M ED 20:33 → M ED INP 20:34 → UNDOADMIN 07-27 03:21 → M ED INP 07-27 03:21 → M MS5PR 07-27 03:55 → UNDODISIN 07-29 12:25
PROVIDERS: ADMIT Internal Medicine; ATTEND Internal Medicine
DX: N17.9 Acute kidney failure, unspecified (principal); N13.2 Hydronephrosis with renal and ureteral calculous obstruction; I10 Essential (primary) hypertension; E78.5 Hyperlipidemia, unspecified; E11.9 Type 2 diabetes mellitus without complications; Z88.0 Allergy status to penicillin; Z79.84 Long term (current) use of oral hypoglycemic drugs; Z79.899 Other long term (current) drug therapy; E66.9 Obesity, unspecified
CPT/HCPCS: 36415; 52356; 74176; 74420; 80048; 80076; 81001; 82365; 83605; 83690; 85025; 87631; 88300; 96361; 96374; 96375; 96376; 99284; C1769; C1894; C2617; J0131; J1100; J1885; J1956; J2250; J2270; J2405; J3010; Q9961

== ENCOUNTER → 2022-01-18 | Outpatient (CLI) | payer OTHER ==
[~2022-01-18] MED LIST: AMLO1TAB24 PO; ATOR1TAB21 PO; IBUP-1730 PO; LISI10TA22 PO; LISI5TAB11 PO; METF-838 PO; METF-839 PO; METO1TAB87 PO; MULTCHW12 PO; NORV5TAB PO
[2022-01-18 15:29] LABS: BASO # 0.1 10^3/uL (0.0-0.2); BASO % 0.8 % (0.0-1.0); EOS # 0.1 10^3/uL (0.0-0.5); EOS % 1.7 % (0.0-3.0); HEMATOCRIT 43.9 % (42.0-52.0); HEMOGLOBIN 14.9 g/dl (13.5-17.5); LYMPH # 1.3 10^3/uL (1.5-5.0); LYMPH % 22.1 % (24.0-44.0); MEAN CORPUSCULAR HEMOGLOBIN 28.5 pg (27.0-33.0); MEAN CORPUSCULAR HGB CONC 33.9 g/dl (32.0-36.5); MEAN CORPUSCULAR VOLUME 83.9 fl (80.0-96.0); MONO # 0.5 10^3/uL (0.0-0.8); MONO % 8.5 % (2.0-8.0); NEUTROPHILS # 3.9 10^3/uL (1.5-8.5); NEUTROPHILS % 65.4 % (36.0-66.0); PLATELET COUNT, AUTOMATED 237 10^3/uL (150-450); RED BLOOD COUNT 5.23 10^6/uL (4.30-6.10)
[2022-01-18 15:33] LABS: BILIRUBIN,TOTAL 0.4 MG/DL (0.2-1.0); CALCIUM LEVEL 9.1 MG/DL (8.5-10.1); CREATININE FOR GFR 1.68 MG/DL (0.70-1.30); GLOMERULAR FILTRATION RATE 47.3 (>60); POTASSIUM SERUM 4.7 MEQ/L (3.5-5.1); TOTAL PROTEIN 7.2 GM/DL (6.4-8.2)
[2022-01-18 15:50] LABS: HEMOGLOBIN A1c 7.7 %
[2022-01-18 16:23] LABS: CREATININE, URINE 92.7 MG/DL; MAU/CREAT RATIO 3225.4 MCG/MG (0.0-30.0)
== END ==
LOC: M PLALAB 11:55
PROVIDERS: ATTEND Physician Assistant Medical
DX: E78.2 Mixed hyperlipidemia (principal); E11.9 Type 2 diabetes mellitus without complications; I10 Essential (primary) hypertension

== ENCOUNTER → 2022-05-21 | Outpatient (CLI) | payer OTHER ==
[2022-05-21 17:52] LABS: ALBUMIN 3.6 GM/DL (3.2-5.2); ALT/SGPT 27 U/L (12-78); BILIRUBIN,TOTAL 0.2 MG/DL (0.2-1.0); BLOOD UREA NITROGEN 54 MG/DL (7-18); CALCIUM LEVEL 9.9 MG/DL (8.5-10.1); CARBON DIOXIDE LEVEL 26 MEQ/L (21-32); CHLORIDE LEVEL 110 MEQ/L (98-107); CHOLESTEROL LEVEL 207 MG/DL (<200); CHOLESTEROL RISK RATIO 7.666 (<5); CREATININE FOR GFR 1.88 MG/DL (0.70-1.30); GLOMERULAR FILTRATION RATE 41.5 (>60); GLUCOSE, FASTING 175 MG/DL (70-100); HDL CHOLESTEROL 27 MG/DL (>40); NON-HDL-C 180 MG/DL; POTASSIUM SERUM 4.9 MEQ/L (3.5-5.1); SODIUM LEVEL 138 MEQ/L (136-145); TOTAL PROTEIN 7.5 GM/DL (6.4-8.2); TRIGLYCERIDES LEVEL 489 MG/DL (<150)
[2022-05-21 18:26] LABS: HEMOGLOBIN A1c 7.4 %
[2022-05-21 18:33] LABS: CREATININE, URINE 87.7 MG/DL; MAU/CREAT RATIO 2519.9 MCG/MG (0.0-30.0)
== END ==
LOC: M WUC 11:09
PROVIDERS: ATTEND Physician Assistant Medical
DX: E78.2 Mixed hyperlipidemia (principal); E11.9 Type 2 diabetes mellitus without complications

== ENCOUNTER → 2022-05-29 | Outpatient (CLI) | payer OTHER ==
[2022-05-29 17:12] LABS: CREATININE FOR GFR 1.97 MG/DL (0.70-1.30); GLOMERULAR FILTRATION RATE 39.3 (>60); POTASSIUM SERUM 4.5 MEQ/L (3.5-5.1)
== END ==
LOC: M WUC 13:50
PROVIDERS: ATTEND Physician Assistant Medical
DX: N18.31 Chronic kidney disease, stage 3a (principal)

== ENCOUNTER → 2022-06-05 | Outpatient (CLI) | payer OTHER | LOC: M RAD 11:20 | PROVIDERS: ATTEND Physician Assistant Medical | DX: N20.0 Calculus of kidney (principal) ==

== ENCOUNTER → 2022-06-06 | Outpatient (REF) | payer OTHER ==
[2022-06-06 17:27] LABS: BASO % 0.5 % (0.0-1.0); EOS # 0.1 10^3/uL (0.0-0.5); EOS % 2.3 % (0.0-3.0); HEMATOCRIT 38.8 % (42.0-52.0); HEMOGLOBIN 12.8 g/dl (13.5-17.5); LYMPH # 1.6 10^3/uL (1.5-5.0); LYMPH % 25.7 % (24.0-44.0); MEAN CORPUSCULAR HEMOGLOBIN 28.3 pg (27.0-33.0); MEAN CORPUSCULAR VOLUME 85.7 fl (80.0-96.0); MONO # 0.6 10^3/uL (0.0-0.8); MONO % 9.1 % (2.0-8.0); NEUTROPHILS # 3.7 10^3/uL (1.5-8.5); NEUTROPHILS % 61.1 % (36.0-66.0); PLATELET COUNT, AUTOMATED 214 10^3/uL (150-450); RED BLOOD COUNT 4.53 10^6/uL (4.30-6.10); WHITE BLOOD COUNT 6.1 10^3/uL (4.0-10.0)
== END ==
LOC: M WUC 16:11
PROVIDERS: ATTEND Physician Assistant Medical
DX: N17.9 Acute kidney failure, unspecified (principal)

== ENCOUNTER → 2022-06-20 | Outpatient (CLI) | payer OTHER | LOC: M RAD 06:37 | PROVIDERS: ATTEND Physician Assistant Medical | DX: N18.31 Chronic kidney disease, stage 3a (principal) ==

== ENCOUNTER → 2022-10-17 | Outpatient (CLI) | payer OTHER ==
[2022-10-17 16:31] LABS: BASO % 0.6 % (0.0-1.0); EOS # 0.2 10^3/uL (0.0-0.5); EOS % 2.6 % (0.0-3.0); HEMATOCRIT 41.8 % (42.0-52.0); HEMOGLOBIN 13.5 g/dl (13.5-17.5); LYMPH # 1.6 10^3/uL (1.5-5.0); LYMPH % 22.9 % (24.0-44.0); MEAN CORPUSCULAR HEMOGLOBIN 28.1 pg (27.0-33.0); MEAN CORPUSCULAR HGB CONC 32.3 g/dl (32.0-36.5); MEAN CORPUSCULAR VOLUME 86.9 fl (80.0-96.0); MONO # 0.7 10^3/uL (0.0-0.8); MONO % 9.9 % (2.0-8.0); NEUTROPHILS # 4.3 10^3/uL (1.5-8.5); NEUTROPHILS % 62.4 % (36.0-66.0); PLATELET COUNT, AUTOMATED 210 10^3/uL (150-450); RED BLOOD COUNT 4.81 10^6/uL (4.30-6.10); WHITE BLOOD COUNT 6.9 10^3/uL (4.0-10.0)
[2022-10-17 16:52] LABS: CREATININE, URINE 87.1 MG/DL
[2022-10-17 16:53] LABS: ALBUMIN 3.5 G/DL (3.2-5.2); BILIRUBIN,TOTAL 0.3 MG/DL (0.3-1.2); CALCIUM LEVEL 8.6 MG/DL (8.5-10.1); CREATININE FOR GFR 1.9 MG/DL (0.70-1.30); GLOMERULAR FILTRATION RATE 40.8 (>60); HEMOGLOBIN A1c 7.4 % (4.0-6.0); POTASSIUM SERUM 4.5 MMOL/L (3.5-5.1); TOTAL PROTEIN 6.7 G/DL (5.7-8.2)
== END ==
LOC: M WUC 12:13
PROVIDERS: ATTEND Physician Assistant Medical
DX: I10 Essential (primary) hypertension (principal); E11.9 Type 2 diabetes mellitus without complications; M17.9 Osteoarthritis of knee, unspecified

== ENCOUNTER → 2022-12-11 | Outpatient (CLI) | payer OTHER ==
[2022-12-11 13:02] LABS: CALCIUM LEVEL 9.6 MG/DL (8.5-10.1); CREATININE FOR GFR 2.15 MG/DL (0.70-1.30); GLOMERULAR FILTRATION RATE 35.4 (>60); POTASSIUM SERUM 4.6 MMOL/L (3.5-5.1)
== END ==
LOC: M WUC 10:39
PROVIDERS: ATTEND Physician Assistant Medical
DX: I10 Essential (primary) hypertension (principal)

== ENCOUNTER → 2023-01-17 | Outpatient (CLI) | payer OTHER | LOC: M RAD 13:03 | PROVIDERS: ATTEND Physician Assistant Medical | DX: N04.9 Nephrotic syndrome with unspecified morphologic changes (principal) | CPT/HCPCS: 78707; A9562 ==

== ENCOUNTER → 2023-10-28 | Outpatient (REF) | payer OTHER | LOC: M SFHCPLAZ 13:23 | PROVIDERS: ATTEND Physician Assistant Medical | DX: J06.9 Acute upper respiratory infection, unspecified (principal) ==

== ENCOUNTER 2024-07-05 06:12 | Day surgery (SDC) | payer OTHER ==
[~2024-07-05] VITALS: Ht 170.2 cm; Wt 91.2 kg
[~2024-07-05 06:12] MED LIST changes: +ALLO100T PO; +ALOG25TA PO; +ATROPINE SULFATE 1% OPHTH SOLN 2ML BTL OS SCH; +CARV25TA PO; +FLURBIPROFEN 0.03% OPHTH SOLN 2.5 ML OS SCH; +HYDR25TA87 PO; +LOSA50TA28 PO; +LR 1,000 ML IV SCH; +PHENYLEPHRINE 2.5% OPHTH SOL 2ML OS SCH; +STEG5TAB PO; +TETRACAINE 0.5% OPHTH SOLN 4ML OS SCH
[2024-07-05] MEDS ORDERED: MIDAZOLAM INJ 2MG/2ML VIAL As Ordered ONE (06:38)
[2024-07-05] MEDS: TETRACAINE 0.5% OPHTH SOLN 4ML OS SCH (06:55)
[2024-07-05] MEDS: PHENYLEPHRINE 2.5% OPHTH SOL 2ML OS SCH (06:55)
[2024-07-05] MEDS: FLURBIPROFEN 0.03% OPHTH SOLN 2.5 ML OS SCH (06:55)
[2024-07-05] MEDS: ATROPINE SULFATE 1% OPHTH SOLN 2ML BTL OS SCH (06:55)
[2024-07-05] MEDS ORDERED: LR 1,000 ML IV SCH (07:00)
[2024-07-05] MEDS: LIDOCAINE 1% SDV 5ML VIAL As Ordered ONE (07:34)
[2024-07-05] MEDS: MOXIFLOXACIN 0.6MG/0.4ML INTRAOCULAR SYRINGE As Ordered ONE (07:44)
[2024-07-05 07:52] VITALS: BP 148/89; TEMP 97.1; O2SAT 97
== END 2024-07-05 08:01 | disposition home or self-care (01) ==
LOC: M SDC 06:12
PROVIDERS: ATTEND Ophthalmology
DX: H25.12 Age-related nuclear cataract, left eye (principal); I10 Essential (primary) hypertension; E11.9 Type 2 diabetes mellitus without complications; N18.9 Chronic kidney disease, unspecified; Z87.891 Personal history of nicotine dependence; Z79.899 Other long term (current) drug therapy; Z88.0 Allergy status to penicillin
CPT/HCPCS: 66984; J2250; V2632

== ENCOUNTER 2024-07-12 07:35 | Day surgery (SDC) | payer OTHER ==
[~2024-07-12] VITALS: Ht 170.2 cm; Wt 91.2 kg
[~2024-07-12 07:35] MED LIST changes: -ATROPINE SULFATE 1% OPHTH SOLN 2ML BTL OS SCH; -FLURBIPROFEN 0.03% OPHTH SOLN 2.5 ML OS SCH; +MIDAZOLAM INJ 2MG/2ML VIAL As Ordered ONE; -PHENYLEPHRINE 2.5% OPHTH SOL 2ML OS SCH; -TETRACAINE 0.5% OPHTH SOLN 4ML OS SCH; +fentaNYL 100 MCG/2 ML INJECTION As Ordered ONE
[2024-07-12] MEDS: TETRACAINE 0.5% OPHTH SOLN 4ML OD SCH (08:32)
[2024-07-12] MEDS: FLURBIPROFEN 0.03% OPHTH SOLN 2.5 ML OD SCH (08:32)
[2024-07-12] MEDS: PHENYLEPHRINE 2.5% OPHTH SOL 2ML OD SCH (08:32)
[2024-07-12] MEDS: ATROPINE SULFATE 1% OPHTH SOLN 2ML BTL OD SCH (08:32)
[2024-07-12] MEDS: LIDOCAINE 1% SDV 5ML VIAL As Ordered ONE (08:55)
[2024-07-12] MEDS: CEFUROXIME 1MG/0.1ML INTRACAMERAL INJ As Ordered ONE (08:55)
[2024-07-12 09:10] VITALS: BP 157/89; TEMP 97.5; O2SAT 96
== END 2024-07-12 09:25 | disposition home or self-care (01) ==
LOC: M SDC 07:35
PROVIDERS: ATTEND Ophthalmology
DX: H25.11 Age-related nuclear cataract, right eye (principal)
CPT/HCPCS: 66984; J0697; J2250; J3010; V2632